=== PATIENT | male | born 1995 | race Caucasian/White ===

== ENCOUNTER 2017-12-31 13:04 | Inpatient (IN) | payer OTHER ==
[2017-12-31 17:06] VITALS: BMI 32.3
--- NOTE | 2017-12-31 17:45 | HP ---
CIWA Score - Admission Criteria [facility] Guidelines: Admission for Medically Managed Detox: Requires at least one of the followin. CIWA greater than 12 2. Seizures within the past 24 hours 3. Delirium tremens within the past 24 hours 4. Hallucinations within the past 24 hours 5. Acute intervention needed for co occurring medical disorder 6. Acute intervention needed for co occurring psychiatric disorder 7. Severe withdrawal that cannot be handled at a lower level of care (continued vomiting, continued diarrhea, abnormal vital signs) requiring intravenous medication and/or fluids 8. Admission ROS [facility] Allergies/Adverse Reactions: Allergies Allergy/AdvReac Type Severity Reaction Status Date / Time No Known Allergies Allergy Verified 12/29/17 23:41 History of Present Illness: pt here requesting rehab as mandated by parole, denies any symptoms , reports use of cocaine and cannabis , first age of use 15 cannabis , cocaine since age 19 , denies Ivdu , incarcerated x 2 years until June 2017 for drug-related charges , on parole x 2 years , continued using since 2 months ago, current use of cocaine 3 x/week 100 $ total/week , cannabis 5 x/day , denies opiate use on regular basis , latest 5 d/ago 1 tablet unknown dosage . Denies withdrawal symptoms . Denies other illicits or etoh , sober while incarcerated , was at this facility 2 days ago , no beds available. tobacco use : 1/2 ppd , requesting nrt w/ gum . pmhx : denies pshx : denies psych : denies meds : none legal : on parole SHx : lives w/ mother who is aware of pt's presence in tx - Ebola screening Have you traveled outside of the country in the last 21 days: No Have you had contact with anyone from an Ebola affected area: No Have you been sick,other than usual withdrawal symptoms: No Do you have a fever: No - Review of Systems Constitutional: No Symptoms Reported EENT: reports: No Symptoms Reported Respiratory: reports: No Symptoms reported Cardiac: reports: No Symptoms Reported GI: reports: No Symptoms Reported : reports: No Symptoms Reported Musculoskeletal: reports: No Symptoms Reported Integumentary: reports: Other (tattoos r arm , nech anterior chest, left forearm) Neuro: reports: No Symptoms reported Endocrine: reports: No Symptoms Reported Psychiatric: reports: Mood/Affect Appropiate, Orientated x3 Patient History - Smoking Cessation Smoking history: Unknown if ever smoked Have you smoked in the past 12 months: No Hx Chewing Tobacco Use: No Family Disease History - Family Disease History Family Disease History: [place]: Grandparent (MGP - cancer ), Other: Grandparent, Brother (1 brother d. s/p fall 2013 ), Sister (2 sister ) Admission Physical Exam [facility] - Vital Signs Vital Signs: Vital Signs - 24 hr 12/31/17 17:05 Temperature 97.1 F L Pulse Rate 60 Respiratory 18 Rate Blood Pressure 136/79 - Physical General Appearance: Yes: Within Normal Limits, No Apparent Distress, Nourished, Appropriately Dressed HEENTM: Yes: Hearing grossly Normal, Normocephalic, Normal Voice, DUONG Respiratory: Yes: Chest Non-Tender, Lungs Clear, Normal Breath Sounds, No Respiratory Distress, No Accessory Muscle Use Neck: Yes: No masses,lesions,Nodules, Trachea in good position Cardiology: Yes: Regular Rhythm, Regular Rate, S1, S2 Abdominal: Yes: Normal Bowel Sounds, Non Tender, Flat, Soft Genitourinary: Yes: Within Normal Limits Back: Yes: Within Normal Limits, Normal Inspection Musculoskeletal: Yes: Within Normal Limits, full range of Motion, Gait Steady, Pelvis Stable Extremities: Yes: Normal Capillary Refill, Normal Inspection, Normal Range of Motion, Non-Tender Neurological: Yes: Fully Oriented, Alert, Motor Strength 5/5, Normal Mood/Affect , Normal Response Integumentary: Yes: Normal Color, Dry, Warm, Other (tattoos as above) Lymphatic: Yes: Within Normal Limits - Diagnostic (1) Cannabis dependence Current Visit: Yes Status: Chronic (2) Cocaine dependence Current Visit: Yes Status: Chronic Qualifiers: Substance use status: uncomplicated Qualified Code(s): F14.20 - Cocaine dependence, uncomplicated (3) Nicotine dependence Current Visit: Yes Status: Chronic Qualifiers: Nicotine product type: cigarettes Substance use status: uncomplicated Qualified Code(s): F17.210 - Nicotine dependence, cigarettes, uncomplicated S Breath Alcohol Content Breath Alcohol Content: 0 Urine Drug Screen - Results Drug Screen Negative: No Urine Drug Screen Results: THC-Marijuana, XIOMARA-Cocaine, OXY-Oxycodone
[2017-12-31] MEDS ORDERED: P-EPHED 60MG/TRIPROLIDI 2.5MG TABLET PO PRN (17:54)
[2017-12-31] MEDS ORDERED: MAG HYDROX/AL HYDROX/SIMETH 30 ML UNIT-DOSE CUP PO PRN (17:54)
[2017-12-31] MEDS ORDERED: MENTHOL/PHENOL 1 EACH UD MM PRN (17:54)
[2017-12-31] MEDS ORDERED: MAGNESIUM CITRATE 300 ML BOTTLE PO PRN (17:54)
[2017-12-31] MEDS ORDERED: NICOTINE POLACRILEX 2 MG GUM BC PRN (17:54)
[2017-12-31] MEDS ORDERED: ACETAMINOPHEN 325 MG TABLET (FP) PO PRN (17:54)
[2017-12-31] MEDS ORDERED: MAGNESIUM HYDROX 2400MG/30ML ORAL SUSPENSION 30 ML CUP PO PRN (17:54)
[2017-12-31] MEDS ORDERED: guaiFENesin/D-METHORPHAN HB 10 ML UNIT-DOSE CUPS PO PRN (17:54)
[2017-12-31] MEDS ORDERED: TUBERCULIN PPD 5 TU/0.1ML VIAL ID ONE (20:17)
[2017-12-31] MEDS: MELATONIN 5 MG TABLETS PO PRN (21:01)
[2017-12-31] MEDS: THIAMINE HCL 100 MG TABLET (FP) PO SCH (21:01)
[2017-12-31 22:54] LABS: URINE APPEARANCE CLEAR; URINE BILIRUBIN NEGATIVE (<2.0 mg/dL); URINE COLOR LTYELLOW; URINE GLUCOSE (UA) NEGATIVE (NEGATIVE); URINE KETONE NEGATIVE (NEGATIVE); URINE LEUK ESTERASE NEGATIVE (NEGATIVE); URINE NITRITE NEGATIVE (NEGATIVE); URINE PROTEIN NEGATIVE (NEGATIVE); URINE UROBILINOGEN NEGATIVE mg/dL (0.2-1.0)
[2018-01-01] MEDS: PRENATAL VITAMINS W/ FOLIC ACID TABLET (FP) PO SCH (09:59)
[2018-01-01] MEDS ORDERED: NICOTINE POLACRILEX 2 MG GUM BUC PRN (10:21)
--- NOTE | 2018-01-01 10:34 | HP ---
Psychiatrist Admission - Data Date of interview: 01/01/18 Admission source: [facility] Identifying data: Patient is a 22 year old single male, without biological children but currently cares for his brother's daughter. Patient is domiciled and is currently unemployed. This is patient's first admission to rehab at [facility]. Patient admitted to for marijuana and cocaine dependence. Medical History: endorses good health Psychiatric History: Patient denies h/o psychiatric hospitalization, outpatient care, and suicide attempt. Physical/Sexual Abuse/Trauma History: denies. Additional Comment[facility] Vital Signs: Vital Signs - 24 hr 12/31/17 12/31/17 12/31/17 17:05 19:30 21:54 Temperature 97.1 F L 99.8 F H 99.8 F H Pulse Rate 60 53 L 53 L Respiratory 18 18 18 Rate Blood Pressure 136/79 137/79 137/79 01/01/18 01/01/18 01/01/18 00:30 03:30 06:41 Temperature Pulse Rate Respiratory 18 18 18 Rate Blood Pressure Allergies/Adverse Reactions: Allergies Allergy/AdvReac Type Severity Reaction Status Date / Time No Known Allergies Allergy Verified 12/29/17 23:41 Date of last physical exam: 12/31/17 Concur with the findings of this exam: Yes - Substance Abuse/Tx History Hx Alcohol Use: No Hx Substance Use: Yes (marijuana- $40 daily Cocaine- $100 weekly) Substance Use Type: Marijuana Mental Status Exam - Mental Status Exam Alert and Oriented to: Time, Place, Person Cognitive Function: Good Patient Appearance: Well Groomed Mood: Hopeful Affect: Appropriate Patient Behavior: Appropriate, Cooperative Speech Pattern: Clear, Appropriate Voice Loudness: Normal Thought Process: Intact, Goal Oriented Thought Disorder: Not Present Hallucinations: Denies Suicidal Ideation: Denies Homicidal Ideation: Denies Insight/Judgement: Poor Sleep: Fair Appetite: Fair Muscle strength/Tone: Normal Gait/Station: Normal Psychiatric Findings - Problem List ([place] 1, 2,3) (1) Cannabis dependence Current Visit: Yes Status: Chronic (2) Cocaine dependence Current Visit: Yes Status: Chronic Qualifiers: Substance use status: uncomplicated Qualified Code(s): F14.20 - Cocaine dependence, uncomplicated (3) Nicotine dependence Current Visit: Yes Status: Chronic Qualifiers: Nicotine product type: cigarettes Substance use status: uncomplicated Qualified Code(s): F17.210 - Nicotine dependence, cigarettes, uncomplicated - Initial Treatment Plan Initial Treatment Plan: Psychoeducation provided. Detoxification in progress. Observation.
[2018-01-01] MEDS: NICOTINE 21 MG/24 HOURS TOPICAL PATCH TD SCH (11:11)
[2018-01-01 14:27] LABS: HEMATOCRIT 43.8 % (35.4-49); MCH 25.2 pg (25.7-33.7); MEAN CELL VOLUME 78.9 fl (80-96); MEAN PLT VOLUME 9.9 fl (7.5-11.1); PLATELET COUNT 242 K/MM3 (134-434); RBC 5.55 M/mm3 (4.00-5.60); RDW 17.9 % (11.9-15.9); WHITE BLOOD COUNT 7.6 K/mm3 (4.0-10.0)
[2018-01-01 15:15] LABS: ALBUMIN 4.4 g/dl (3.4-5.0); ALK PHOS 49 U/L (45-117); ANION GAP 8 MMOL/L (8-16); BILIRUBIN,TOTAL 0.5 mg/dL (0.2-1); BLOOD UREA NITROGEN 13 mg/dL (7-18); CALCIUM 9.8 mg/dL (8.5-10.1); CHLORIDE 103 mmol/L (98-107); CO2 30 mmol/L (21-32); CREATININE 1.2 mg/dL (0.55-1.3); GLUCOSE,RANDOM 83 mg/dL (74-106); POTASSIUM 4.6 mmol/L (3.5-5.1); SGOT/AST 67 U/L (15-37); SGPT/ALT 39 U/L (13-61); SODIUM 141 mmol/L (136-145); TOT PROT 7.6 g/dl (6.4-8.2)
[2018-01-01] MEDS: MELATONIN 5 MG TABLETS PO PRN (21:04)
[2018-01-01] MEDS: THIAMINE HCL 100 MG TABLET (FP) PO SCH (21:04)
[2018-01-02] MEDS: PRENATAL VITAMINS W/ FOLIC ACID TABLET (FP) PO SCH (10:40)
[2018-01-02] MEDS: NICOTINE 21 MG/24 HOURS TOPICAL PATCH TD SCH (10:40)
[2018-01-02] MEDS: THIAMINE HCL 100 MG TABLET (FP) PO SCH (21:02)
[2018-01-02] MEDS: MELATONIN 5 MG TABLETS PO PRN (21:03)
[2018-01-03] MEDS: NICOTINE 21 MG/24 HOURS TOPICAL PATCH TD SCH (10:39)
[2018-01-03] MEDS: PRENATAL VITAMINS W/ FOLIC ACID TABLET (FP) PO SCH (10:39)
[2018-01-03] MEDS: THIAMINE HCL 100 MG TABLET (FP) PO SCH (21:02)
[2018-01-03] MEDS: MELATONIN 5 MG TABLETS PO PRN (21:03)
[2018-01-04] MEDS: PRENATAL VITAMINS W/ FOLIC ACID TABLET (FP) PO SCH (10:14)
[2018-01-04] MEDS: NICOTINE 21 MG/24 HOURS TOPICAL PATCH TD SCH (10:14)
[2018-01-04] MEDS: THIAMINE HCL 100 MG TABLET (FP) PO SCH (21:00)
[2018-01-04] MEDS: MELATONIN 5 MG TABLETS PO PRN (21:01)
[2018-01-05] MEDS: NICOTINE 21 MG/24 HOURS TOPICAL PATCH TD SCH (10:45)
[2018-01-05] MEDS: PRENATAL VITAMINS W/ FOLIC ACID TABLET (FP) PO SCH (10:45)
[2018-01-05] MEDS: THIAMINE HCL 100 MG TABLET (FP) PO SCH (21:17)
[2018-01-05] MEDS: MELATONIN 5 MG TABLETS PO PRN (21:17)
[2018-01-06] MEDS: NICOTINE 21 MG/24 HOURS TOPICAL PATCH TD SCH (09:57)
[2018-01-06] MEDS: PRENATAL VITAMINS W/ FOLIC ACID TABLET (FP) PO SCH (09:57)
[2018-01-06] MEDS: IBUPROFEN 400 MG TABLET (FP) PO PRN ×2 (13:07→21:00)
[2018-01-06] MEDS: MELATONIN 5 MG TABLETS PO PRN (20:59)
[2018-01-06] MEDS: THIAMINE HCL 100 MG TABLET (FP) PO SCH (20:59)
[2018-01-07] MEDS: IBUPROFEN 400 MG TABLET (FP) PO PRN ×2 (07:44→21:11)
[2018-01-07] MEDS: PRENATAL VITAMINS W/ FOLIC ACID TABLET (FP) PO SCH (10:00)
[2018-01-07] MEDS: NICOTINE 21 MG/24 HOURS TOPICAL PATCH TD SCH (10:00)
[2018-01-07] MEDS: THIAMINE HCL 100 MG TABLET (FP) PO SCH (21:09)
[2018-01-07] MEDS: MELATONIN 5 MG TABLETS PO PRN (21:11)
[2018-01-08] MEDS: NICOTINE 21 MG/24 HOURS TOPICAL PATCH TD SCH (11:03)
[2018-01-08] MEDS: PRENATAL VITAMINS W/ FOLIC ACID TABLET (FP) PO SCH (11:03)
[2018-01-08] MEDS: THIAMINE HCL 100 MG TABLET (FP) PO SCH (21:10)
[2018-01-08] MEDS: IBUPROFEN 400 MG TABLET (FP) PO PRN (21:11)
[2018-01-08] MEDS: MELATONIN 5 MG TABLETS PO PRN (21:11)
[2018-01-09] MEDS: NICOTINE 21 MG/24 HOURS TOPICAL PATCH TD SCH (10:37)
[2018-01-09] MEDS: PRENATAL VITAMINS W/ FOLIC ACID TABLET (FP) PO SCH (10:37)
[2018-01-09] MEDS: THIAMINE HCL 100 MG TABLET (FP) PO SCH (21:03)
[2018-01-09] MEDS: MELATONIN 5 MG TABLETS PO PRN (21:03)
[2018-01-09] MEDS: IBUPROFEN 400 MG TABLET (FP) PO PRN (21:03)
[2018-01-10] MEDS: NICOTINE 21 MG/24 HOURS TOPICAL PATCH TD SCH (10:00)
[2018-01-10] MEDS: PRENATAL VITAMINS W/ FOLIC ACID TABLET (FP) PO SCH (10:00)
[2018-01-10] MEDS: THIAMINE HCL 100 MG TABLET (FP) PO SCH (21:04)
[2018-01-10] MEDS: MELATONIN 5 MG TABLETS PO PRN (21:05)
[2018-01-10] MEDS: IBUPROFEN 400 MG TABLET (FP) PO PRN (21:05)
[2018-01-11] MEDS: PRENATAL VITAMINS W/ FOLIC ACID TABLET (FP) PO SCH (10:05)
[2018-01-11] MEDS: NICOTINE 21 MG/24 HOURS TOPICAL PATCH TD SCH (10:05)
[2018-01-11] MEDS: MELATONIN 5 MG TABLETS PO PRN (21:08)
[2018-01-11] MEDS: THIAMINE HCL 100 MG TABLET (FP) PO SCH (21:08)
[2018-01-12] MEDS: PRENATAL VITAMINS W/ FOLIC ACID TABLET (FP) PO SCH (11:21)
[2018-01-12] MEDS: NICOTINE 21 MG/24 HOURS TOPICAL PATCH TD SCH (11:21)
--- NOTE | 2018-01-12 11:25 | PN ---
Psychiatric Progress Note Vital Signs: Vital Signs Period Temp Pulse Resp BP Sys/Wolf Pulse Ox Last 24 Hr Date of Session: 01/12/18 Chief Complaint:: DischARGE VISIT Current Medications: Active Medications Generic Name Dose Route Start Last Admin Trade Name Freq PRN Reason Stop Dose Admin Acetaminophen 650 mg 12/31/17 17:54 Tylenol - PO Q4H PRN FEVER Al Hydroxide/Mg Hydroxide 30 ml 12/31/17 17:54 Mylanta Oral Suspension - PO Q6H PRN DYSPEPSIA Eucalyptus/Menthol/Phenol/Sorbitol 1 each 12/31/17 17:54 Cepastat Lozenge - MM Q4H PRN SORE THROAT Guaifenesin 10 ml 12/31/17 17:54 Robitussin Dm - PO Q6H PRN COUGH Ibuprofen 400 mg 12/31/17 17:54 01/10/18 21:05 Motrin - PO 400 mg Q6H PRN Administration Pain level 4-6 Magnesium Citrate 300 ml 12/31/17 17:54 Citroma - PO Q48H PRN CONSTIPATION Magnesium Hydroxide 30 ml 12/31/17 17:54 Milk Of Magnesia - PO DAILY PRN CONSTIPATION Melatonin 5 mg 12/31/17 22:00 01/11/18 21:08 Melatonin PO 5 mg HS PRN Administration INSOMNIA Nicotine 21 mg 01/01/18 10:30 01/12/18 11:21 Nicoderm Patch - TD Not Given DAILY ABELINO Nicotine Polacrilex 2 mg 12/31/17 17:54 12/31/17 21:06 Nicorette Gum - BC 2 mg Q2H PRN Administration NICOTINE REPLACEMENT RX Multivit/Folic Acid/Iron 1 tab 01/01/18 10:00 01/12/18 11:21 Vitamins (Sjr) - PO Not Given DAILY ABELINO Pseudoephedrine/Triprolidine 1 combo 12/31/17 17:54 Actifed - PO TID PRN NASAL CONGESTION Thiamine HCl 100 mg 12/31/17 22:00 01/11/18 21:08 Vitamin B1 - PO 100 mg HS ABELINO Administration
[2018-01-12 11:30] VITALS: BP 136/87; PULSE 58; TEMP 99
== END 2018-01-12 11:50 | disposition home or self-care (01) | DRG 772 ==
LOC: YASAS 13:04 → Y5N 17:55
PROVIDERS: ADMIT Psychiatry & Neurology Psychiatry; ATTEND Psychiatry & Neurology Psychiatry
PROC: HZ42ZZZ Group Counseling for Substance Abuse Treatment, Cognitive-Behavioral (ICD-10-PCS; principal; 2017-12-31)
DX: F14.20 Cocaine dependence, uncomplicated (principal); F12.20 Cannabis dependence, uncomplicated; F17.210 Nicotine dependence, cigarettes, uncomplicated
CPT/HCPCS: 36415; 80053; 81003; 85027; 86593